=== PATIENT | female | born 1960 | race Caucasian/White ===

== ENCOUNTER 2018-07-09 07:49 | Day surgery (SDC) | payer OTHER ==
[2018-07-09] MEDS ORDERED: PROPOFOL 200 MG INJ (08:54)
[2018-07-09] MEDS ORDERED: PROPOFOL 40 ML (08:54)
== END 2018-07-09 15:21 | disposition home or self-care (01) ==
LOC: GIL 07:49
DX: K29.50 Unspecified chronic gastritis without bleeding (principal); J45.909 Unspecified asthma, uncomplicated
CPT/HCPCS: 43239; 88305; 88312; 88313